=== PATIENT | female | born 2000 | race Caucasian/White ===

== ENCOUNTER 2019-03-12 16:25 | Emergency (ER) | payer OTHER ==
--- NOTE | 2019-03-12 16:31 | PDOC ---
Rapid Medical Evaluation Time Seen by Provider: 03/12/19 16:28 Medical Evaluation: 03/12/19 16:28 CC: intermittent rash x3 months PE: flat blanchable puritic rash to extremities Orders: nothing Patient will proceed to ER for continued evaluation. Discharge Disposition - Diagnosis Rash - Referrals - Patient Instructions - Post Discharge Activity
[2019-03-12 16:34] VITALS: BP 130/78; PULSE 85; TEMP 98.1; BMI 22.3
[2019-03-12] MEDS ORDERED: LORATADINE 10 MG TABLET PO ONE (16:44)
--- NOTE | 2019-03-12 16:49 | PDOC ---
History of Present Illness - General Chief Complaint: Rash Stated Complaint: RASH FOR TWO MONTHS Time Seen by Provider: 03/12/19 16:28 History Source: Patient - History of Present Illness Timing/Duration: reports: other (2 months) Location: reports: extremities Respiratory Risk Factors: reports: no cause identified Past History - Past Medical History Allergies/Adverse Reactions: Allergies Allergy/AdvReac Type Severity Reaction Status Date / Time No Known Allergies Allergy Verified 03/12/19 16:34 Home Medications: Ambulatory Orders Loratadine [Claritin] 10 mg PO DAILY #12 tablet 03/12/19 COPD: No - Psycho Social/Smoking Cessation Hx Smoking History: Never smoked Information on smoking cessation initiated: No Hx Alcohol Use: No Drug/Substance Use Hx: No Review of Systems - Review of Systems Constitutional: No: Chills, Fever Integumentary: Yes: Pruritus, Rash *Physical Exam - Vital Signs Last Vital Signs Temp Pulse Resp BP Pulse Ox 98.1 F 85 19 130/78 99 03/12/19 16:30 03/12/19 16:30 03/12/19 16:30 03/12/19 16:30 03/12/19 16:30 - Physical Exam General Appearance: Yes: Appropriately Dressed. No: Apparent Distress HEENT: positive: Normal Voice Neck: positive: Supple Integumentary: positive: Dry, Warm, Other (extensive confluent erythematous patch w/ overlying scales to flexor aspect of elbows b/l and anteromedial thighs b/l no palm/sole involvement) Neurologic: positive: Fully Oriented, Alert, Normal Mood/Affect Medical Decision Making - Medical Decision Making 03/12/19 16:42 18-year-old female, denies any past medical history, here for evaluation of rash. Patient states 2 months ago she developed a pruritic rash to bilateral upper and lower exts that initially was intermittent but now constant x 2 weeks. Has not taking anything for symptoms. Denies any new medication or topical agents prior to onset of rash. No known allergies. No h/o similar condition. No sig fmhx. Feels well otherwise. see exam Rash x 2 months No obvious inciting factors Unclear etiology at this time, ?fungal vs other non-emergent rash -Dc w/ oral antihistamine and derm f/u for further evaluation/management Discharge - Discharge Information Problems reviewed: Yes Clinical Impression/Diagnosis: Rash and nonspecific skin eruption Condition: Stable Disposition: HOME - Additional Discharge Information Prescriptions: Loratadine [Claritin] 10 mg PO DAILY #12 tablet - Follow up/Referral Referrals: Verena Betts MD [Staff Physician] - - Patient Discharge Instructions Patient Printed Discharge Instructions: DI for Rash Additional Instructions: The cause of your rash is unclear at this time and you will need further evaluation by a nurses director. Please call Dr. Betts tomorrow to make an appointment. Take Claritin daily as needed for itching in the meantime - Post Discharge Activity
[2019-03-12] MEDS ORDERED: LORATADINE 10 MG TABLET ONE (17:19)
== END 2019-03-12 17:24 | disposition home or self-care (01) ==
LOC: JERFT 16:25
DX: R21 Rash and other nonspecific skin eruption (principal)
CPT/HCPCS: 99281-25

== ENCOUNTER 2023-06-04 20:03 | Emergency (ER) | payer OTHER ==
[2023-06-04 20:09] VITALS: BP 117/92; PULSE 87; RESP 20; TEMP 97.5; BMI 23.0
[2023-06-04] MEDS ORDERED: IBUPROFEN 400 MG TABLET (FP) PO ONE ×2 (21:22→21:24)
[2023-06-04 22:28] LABS: BASO % 0.6 % (0-2.0); EOS % 1.6 % (0-4.5); HEMATOCRIT 39.1 % (32.4-45.2); HEMOGLOBIN 13.5 GM/dL (10.7-15.3); LYMPH % 31.5 % (8-40); MCH 31.3 pg (25.7-33.7); MCHC 34.5 g/dl (32.0-36.0); MEAN CELL VOLUME 90.6 fl (80-96); MEAN PLT VOLUME 9.5 fl (7.5-11.1); MONO % 7.2 % (3.8-10.2); NEUT % 59.1 % (42.8-82.8); PLATELET COUNT 246 10^3/uL (134-434); RBC 4.32 M/mm3 (3.60-5.2); RDW 12.7 % (11.6-15.6); WHITE BLOOD COUNT 7.3 K/mm3 (4.0-10.0)
[2023-06-04 22:31] LABS: INR 1.03 (0.83-1.09); PROTHROMBIN TIME (PATIENT) 11.9 SEC (9.7-13.0)
[2023-06-04 22:33] LABS: ACTIVATED PTT 33.8 SECONDS (25.2-36.5)
[2023-06-04 22:34] LABS: POTASSIUM 4.3 mmol/L (3.5-5.1)
[2023-06-04 22:36] LABS: CALCIUM 9.3 mg/dL (8.5-10.1)
[2023-06-04 22:37] LABS: ALBUMIN 3.9 g/dl (3.4-5.0); BLOOD UREA NITROGEN 15.9 mg/dL (7-18)
[2023-06-04 22:40] LABS: CREATININE 0.9 mg/dL (0.55-1.3)
[2023-06-04 22:41] LABS: BILIRUBIN,TOTAL 0.3 mg/dL (0.2-1)
== END 2023-06-05 | disposition home or self-care (01) ==
LOC: JER 20:03
DX: R07.81 Pleurodynia (principal); Z20.822 Contact with and (suspected) exposure to COVID-19
CPT/HCPCS: 0241U-QW; 36415; 71046-TC-FY; 71275-TC; 80053; 84703; 85025; 85610; 85730; 93005; 93010; 99285-25; Q9967